=== PATIENT | female | born 1990 | race Caucasian/White ===

== ENCOUNTER 2021-03-28 13:10 | Emergency (ER) | payer OTHER ==
[~2021-03-28] VITALS: Ht 152.4 cm; Wt 53.5 kg
--- NOTE | 2021-03-28 13:30 | NUR ---
Pt triaged and placed in tent.
--- NOTE | 2021-03-28 13:35 | NUR ---
Pt walked in to ER with c/o sore throat and cold symptoms x1 week. V/S stable, no acute distress noted.
[2021-03-28 13:43] VITALS: BP_SYST 115
--- NOTE | 2021-03-28 13:45 | NUR ---
ER Dr. Ewing at bedside examining patient.
[2021-03-28 14:31] VITALS: BP_SYST 115
--- NOTE | 2021-03-28 14:33 | NUR ---
Patient given written and verbal discharge instructions and verbalizes understanding. ER MD discussed with patient the results and treatment provided. Patient in stable condition. ID arm band removed. No prescriptions given. Patient educated on pain management and to follow up with PMD. Pain Scale 0. Opportunity for questions provided and answered. Medication side effect fact sheet provided.
== END 2021-03-28 14:31 | disposition home or self-care (01) ==
LOC: SED 13:10
DX: J06.9 Acute upper respiratory infection, unspecified (principal)
CPT/HCPCS: 71045; 99283